=== PATIENT | female | born 1985 | race American Indian/Alaskan Native ===

== ENCOUNTER 2017-07-20 12:22 | Emergency (ER) | payer OTHER, MEDICAID ==
[2017-07-20 12:44] VITALS: BP 101/55
== END 2017-07-20 13:55 | disposition left against medical advice (07) ==
LOC: ED 12:22
DX: M54.2 Cervicalgia (principal); R51 Headache; Z53.21 Procedure and treatment not carried out due to patient leaving prior to being seen by health care provider